=== PATIENT | female | born 1980 | race Asian ===

== ENCOUNTER → 2017-12-27 | Outpatient (CLI) | payer OTHER | END | disposition home or self-care (01) | LOC: C.PAPS 11:49 | PROVIDERS: ATTEND Physician Assistant | DX: Z01.419 Encounter for gynecological examination (general) (routine) without abnormal findings (principal) ==

== ENCOUNTER 2019-03-01 03:03 | Inpatient (IN) ==
[2019-03-01] MEDS: LACTATED RINGER'S 1,000 ML IV PRN ×2 (03:30→04:59)
[2019-03-01] MEDS ORDERED: OXYTOCIN 30 UNITS/500 ML BAG IV PRN ×2 (03:34→06:38)
--- NOTE | 2019-03-01 03:41 | History & Physical Report ---
Date of Service March 01, 2019 Assessment & Plan (1) Normal labor: IUP at 39 weeks in active labor planning epidural analgesia anticipate vaginal History of Present Illness Primary Care Provider: Zanerehan Quincy Patient is a 38 yo female who presents at 39 weeks with regular contractions. (-) SROM ,(-) bloody show, GBS(-). complicated by AMA and son is affected by Hemophilia A. This baby is a girl. Home Medications Home Medications Medication Instructions Recorded Confirmed Type [id number] fumarate-FA 1 tab PO DAILY 12/06/18 12/06/18 History [] Patient History Medical History No significant family history No significant medical problems No significant past medical history No significant past surgical history Social History Communication Tools: IPad Feels Safe at Home: Yes Smoking Status: Never smoker Hx Alcohol Use: No Hx Substance Use: No Review of Systems All systems reviewed & are unremarkable except as noted in HPI & below Physical Exam Constitutional: WD/WN, vitals as above Respiratory: normal respiratory effort, lungs clear to auscultation Cardiovascular: RRR, no murmur, no edema Gastrointestinal (Abdomen): normal bowel sounds, soft, nontender, no hepatosplenomegaly Musculoskeletal: no cyanosis or clubbing, extremities motor strength 5/5 no calf tenderness. Genitourinary: OB Exam Abdomen: + vertex and + regular contractions (3-4 minutes) Manual OB Exam: + cervical dilation 4 cm, + cervical effacement 80% and + station -1 OB Exam Monitor Tracing: + external FHT monitor used, + external uterine monitor used, + category I and + normal FHT variability Results & Data Vital Signs (Past 12 Hours) Vital Signs Pulse BP 03/01/19 03:15 60 155/88 H 03/01/19 03:12 66 143/79 H
[2019-03-01 04:05] LABS: Hematocrit (blood only) 32.8 % (37-47); Hemoglobin 11.7 g/dL (12.0-16.0); Mean Corpuscular Volume 89.6 fL (80-100); Mean Platelet Volume 10.1 fL (7.4-10.4); Platelet Count 146 K/uL (130-400); RDW Coefficient of Variation 12.5 % (11.5-14.5); RDW Standard Deviation 40.6 fL (36.4-46.3); Red Blood Count 3.66 M/uL (4.2-5.4)
[2019-03-01 04:10] LABS: Mean Corpuscular Hgb Conc 35.7 g/dL (32-36)
[2019-03-01] MEDS ORDERED: fentaNYL 2MCG/ML ROPIV 1.25MG/ML 100 ML BAG EPI ONE (04:23)
[2019-03-01] MEDS ORDERED: fentaNYL citrate 100 MCG/2 ML VIAL ONE (04:24)
[2019-03-01] MEDS ORDERED: BUPIVACAINE 0.25% 30 ML VIAL ONE (04:24)
[2019-03-01] MEDS ORDERED: ePHEDrine sulfate 50 MG/ML AMP ONE (04:24)
--- NOTE | 2019-03-01 04:48 | Anesthesiology Consultation ---
Date of Service March 01, 2019 Marshallese speaking Assessment & Plan Chart Review Chart Review: Patient NOT seen in Pre Admission Testing and Acceptable Risk for Labor Epidural Consults Requested none ASA ASA2 Proposed Anesthesia Anesthesia Type: Labor Epidural and CSE Risk / Benefits Reviewed With: PT / POA / Parent / Guardian, Accepts Plan and Informed Consent Obtained History Height/Weight Height: 5 ft 4 in Weight: 67.132 kg Allergies Allergy/AdvReac Type Severity Reaction Status Date / Time No Known Allergies Allergy Unverified 03/01/19 04:10 Medications Home Medications Medication Instructions Recorded Confirmed Last Taken [id number] fumarate-FA 1 tab PO DAILY 12/06/18 03/01/19 02/28/19 08:00 [] Active Medications Generic Name Dose Route Start Last Admin Trade Name Freq PRN Reason Stop Dose Admin Lactated Ringer's 1,000 mls @ 125 mls/hr 03/01/19 03:34 03/01/19 03:30 Lr IV 03/03/19 03:33 999 mls/hr .Q8H PRN Administration L&D Protocol Protocol NPO Date Last Intake of Fluids: 03/01/19 Time Last Intake of Fluids: 04:00 Date Last Intake of Solids: 02/28/19 Time Last Intake of Solids: 22:00 Past Medical History 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 No significant family history No significant medical problems No significant past medical history No significant past surgical history Exercise / Class Metabolic Activity II 4-5 Yardwork/Stairs/Walk up hill Past Surgical History Surgical History Hx of breast lump removal Past Anesthesia History No Hx of Anesthesia Complications and No Family Hx of Anesthesia Complications Social History Smoking Status: Never smoker Hx Alcohol Use: No Hx Substance Use: No Review of Systems no chest pain or sob Physical Exam Vital Signs Last Vital Signs Temp 36.4 C L 03/01/19 03:20 Pulse 63 03/01/19 04:45 Resp 18 03/01/19 03:20 BP 155/88 H 03/01/19 03:15 Pulse Ox 100 03/01/19 04:45 ENMT Mouth: no TMJ abnormality Thyromental Distance: > or= 3.5 Finger Breadths Mallampati Class: II Neck normal visual inspection Respiratory normal respiratory effort Auscultation: lungs clear to auscultation bilaterally Cardiovascular Rate/Rhythm: regular rate and regular rhythm Musculoskeletal Spine: normal cervical ROM Neurologic moves all extremities Psychiatric Orientation: alert and oriented x 3 Testing Laboratory Results 03/01/19 03:57
[2019-03-01] MEDS ORDERED: ePHEDrine sulfate 50 MG/ML AMP IV PRN (05:03)
[2019-03-01] MEDS ORDERED: NALOXONE HCL 0.4 MG/1 ML VIAL/CARP IV PRN (05:03)
[2019-03-01] MEDS ORDERED: NALOXONE HCL 1 MG in SODIUM CHLORIDE 0.9% 1000ML 1,000 ML IV PRN (05:03)
[2019-03-01] MEDS ORDERED: ONDANSETRON INJ 2 MG/ML 2 ML VIAL IV PRN (05:03)
[2019-03-01] MEDS ORDERED: fentaNYL 2MCG/ML ROPIV 1.25MG/ML 100 ML BAG EPI PRN (05:03)
[2019-03-01] MEDS ORDERED: DiphenhydrAMINE HCL 50 MG/ML VIAL IV PRN (05:03)
[2019-03-01] MEDS ORDERED: NALBUPHINE HCL INJ 10 MG/ML AMP IV PRN (05:03)
[2019-03-01] MEDS ORDERED: OXYCODONE/ACETAMINOPHEN 5mg/325mg TAB PO PRN (06:38)
[2019-03-01] MEDS ORDERED: ACETAMINOPHEN 325 MG TAB PO PRN (06:38)
[2019-03-01] MEDS ORDERED: IBUPROFEN 600 MG TAB PO PRN (06:38)
[2019-03-01] MEDS ORDERED: BENZOCAINE 20% AER SPR 82.5 GM CAN EXT PRN (06:38)
[2019-03-01] MEDS ORDERED: DIPHTHERIA/TETANUS/PERTUSSIS 0.5 ML SYR/VIAL IM ONE (06:38)
[2019-03-01] MEDS ORDERED: SUPERCREAM 0.870% 15 GM JAR EXT PRN (06:38)
[2019-03-01] MEDS ORDERED: HYDROCORTISONE ACETATE 25 MG SUPP PR PRN (06:38)
--- NOTE | 2019-03-01 07:47 | Anesthesia Procedure Note ---
Date of Service March 01, 2019 Anesthesia Post Epidural Note Vital Signs Vital Signs: Temp Pulse Resp BP Pulse Ox 36.8 C 71 18 125/71 63 L 03/01/19 07:05 03/01/19 07:39 03/01/19 07:20 03/01/19 07:39 03/01/19 06:15 Notes Mental Status: alert / awake / arousable and participated in evaluation Nausea / Vomiting: adequately controlled Pain: adequately controlled Airway Patency, RR, SpO2: stable & adequate BP & HR: stable & adequate Hydration State: stable & adequate Neuraxial Anesthesia: was administered and sensory block is resolving Anesthetic Complications: no major complications apparent and Pt Satisfied with anesthetic care Epidural: Removed without complications and With tip intact Notes: Epidural site clean, dry and intact. No signs of edema, erythema or bruising at insertion site. Pt instructed to request anesthesia if she has residual lower extremity numbness or if she develops lower extremity pain or weakness, back pain or headache.
[2019-03-01] MEDS ORDERED: FERROUS SULFATE 325 MG TAB PO ONE (08:29)
[2019-03-01] MEDS: PRENATAL VITAMIN 1 TAB PO SCH (08:31)
[2019-03-01] MEDS: DOCUSATE SODIUM 100 MG CAP PO SCH ×2 (08:31→20:11)
--- NOTE | 2019-03-01 09:16 | Delivery Summary ---
DATE OF OPERATION: 03/01/2019 The patient is a 38-year-old 2, para 1-0-0-1 female, who presents in active labor. Membranes ruptured spontaneously at approximately quarter of 5 in the morning. She received effective epidural analgesia. She moved rapidly to full dilation and pushed effectively over intact perineum for delivery of a viable female infant. The was placed on the mother's abdomen after delivery and there was spontaneous vigorous crying and the was moving all 4 limbs. The cord was somewhat short and this was clamped and cut, so further stability of the baby, the placenta was expressed, although the cord avulsed as the placenta was coming through the cervix and then it was manually extracted through the cervix without difficulty and intact. The cord was also 3 vessels. The second-degree perineal laceration was repaired with 3-0 chromic in the usual fashion. Estimated blood loss was 250 mL. Mother and are doing well after delivery. I attest to the content of the Intraoperative Record and any orders documented therein. Any exception s are noted below.
--- NOTE | 2019-03-02 07:16 | Obstetrical Progress Note ---
Date of Service <Denver Crocker DO - Last Filed: 03/02/19 07:16> March 02, 2019 Assessment & Plan <Denver Crocker DO - Last Filed: 03/02/19 07:16> (1) (spontaneous vaginal delivery): -vital signs reviewed and WNL -Blood type: B+, GBS-, Rubella Immune -pt doing well clinically -encourage ambulation, monitor and control pain with motrin tylenol, cont regular diet, monitor lochia -cont encourage bottle feeding -anticipate d/c tomorrow Subjective <Denver Crocker DO - Last Filed: 03/02/19 07:16> 38 y/o PPD1 found in bed this morning in NAD. Reports no acute overnight events. Pt states that she has no pain other than appropriate soreness. Tolerating PO intake without N/V. Able to ambulate without issue. She is bottle feeding without issue. No issues with voiding, no BM yet but passing gas. No other acute concerns or complaints. Review of Systems All systems reviewed & are unremarkable except as noted in HPI & below Physical Exam <Denver Crocker DO - Last Filed: 03/02/19 07:16> Constitutional WD/WN, vitals as above Respiratory normal respiratory effort, lungs clear to auscultation Cardiovascular RRR, no murmur, no edema Gastrointestinal (Abdomen) mild abd tenderness Skin no rashes, warm and dry Psychiatric A+Ox3, euthymic affect Lymphatic no LE swelling, no calf tenderness Results & Data <Denver Crocker DO - Last Filed: 03/02/19 07:16> Vital Signs (Past 12 Hours) Vital Signs Temp Pulse Resp BP Pulse Ox 03/02/19 03:50 37 C 76 16 101/63 97 03/01/19 23:40 36.8 C 74 16 118/78 95 03/01/19 19:50 36.8 C 79 18 108/75 98 Medications Administered Current Inpatient Medications Acetaminophen (Tylenol) 650 mg PO Q6H PRN PRN Reason: Pain/LEONE/Fever Stop: 03/31/19 06:37 Benzocaine (Dermoplast Pain Relieving [place]) 1 appln EXT PRN PRN PRN Reason: Perineal Discomfort Stop: 03/31/19 06:37 Last Admin: 03/01/19 08:31 Dose: 82.5 appln Documented by: Bisacodyl (Dulcolax) 5 mg PO 1999 [facility] Stop: 03/02/19 20:01 Bisacodyl (Dulcolax) 10 mg CA DAILY PRN PRN Reason: No BM on 2nd post- day Stop: 04/02/19 00:00 Cocaine HCl (Supercream 0.870%) 1 gm EXT BID PRN PRN Reason: Hemorrhoidal Inflammation Stop: 03/15/19 06:37 Docusate Sodium (Colace) 100 mg PO DAILY@08,21 [facility] Stop: 03/31/19 07:59 Last Admin: 03/01/19 20:11 Dose: 100 mg Documented by: Hydrocortisone (Anusol Hc) 25 mg CA BID PRN PRN Reason: Hemorrhoidal Inflammation Stop: 03/31/19 06:37 Lactated Ringer's (Lr) 1,000 mls @ 125 mls/hr IV .Q8H PRN; Protocol PRN Reason: L&D Protocol Stop: 03/03/19 03:33 Last Admin: 03/01/19 04:59 Dose: 999 mls/hr Documented by: Oxytocin (Pitocin) 30 units in 500 mls @ 333.333 mls/hr IV .Q1H30M PRN; Protocol PRN Reason: Bleeding Control Stop: 03/31/19 03:33 Last Admin: 03/01/19 06:25 Dose: 20 units/hr, 333.3 mls/hr Documented by: Oxytocin (Pitocin) 30 units in 500 mls @ 333.333 mls/hr IV .Q1H30M PRN; Protocol PRN Reason: Bleeding Control Stop: 03/31/19 06:37 Ibuprofen (Motrin) 600 mg PO Q4H PRN PRN Reason: Pain/LEONE/Cramping/Fever Stop: 03/31/19 06:37 Last Admin: 03/01/19 08:31 Dose: 600 mg Documented by: Oxycodone/Acetaminophen (Percocet 5mg/325mg) 1 tab PO Q4H PRN PRN Reason: Pain not relieved by... Stop: 03/15/19 06:37 Prenat Multivit/[place]/Iron/Folic Ac ( Vitamin) 1 tab PO DAILY@08 [facility] Stop: 03/31/19 07:59 Last Admin: 03/01/19 08:31 Dose: 1 tab Documented by: <Segun Hughes MD - Last Filed: 03/02/19 08:14> Co-Signing Physician Notes Patient seen and evaluated and agree with the above findings and plan. Resident Activity Tracking <Denver Crocker DO - Last Filed: 03/02/19 07:16> Resident Involvement: Resident Care Provided Care Provided: OB Delivery
[2019-03-02 08:03] LABS: Hematocrit (blood only) 32.3 % (37-47); Hemoglobin 11.3 g/dL (12.0-16.0); Mean Corpuscular Volume 91.5 fL (80-100); Mean Platelet Volume 9.5 fL (7.4-10.4); Platelet Count 144 K/uL (130-400); RDW Coefficient of Variation 12.9 % (11.5-14.5); RDW Standard Deviation 42.7 fL (36.4-46.3); Red Blood Count 3.53 M/uL (4.2-5.4)
[2019-03-02] MEDS: DOCUSATE SODIUM 100 MG CAP PO SCH ×2 (09:14→20:31)
[2019-03-02] MEDS: PRENATAL VITAMIN 1 TAB PO SCH (09:14)
[2019-03-02] MEDS ORDERED: BISACODYL 5 MG TABEC PO SCH (20:00)
[2019-03-03] MEDS ORDERED: BISACODYL 10 MG SUPP PR PRN
[2019-03-03 06:32] LABS: Hematocrit (blood only) 30.3 % (37-47); Hemoglobin 10.7 g/dL (12.0-16.0)
--- NOTE | 2019-03-03 07:30 | Obstetrical Progress Note ---
Date of Service March 03, 2019 Assessment & Plan (1) (spontaneous vaginal delivery): - doing well - desires d/c - instructions given - f/u in 6 weeks Subjective Ambulation: ambulating normally Voiding: no voiding problems Diet Tolerance:: regular diet Feeding Type:: breast feeding Physical Exam Gastrointestinal (Abdomen) Fundus firm below U Musculoskeletal (-) deep calf tenderness Results & Data Vital Signs (Past 12 Hours) Vital Signs Temp Pulse Resp BP Pulse Ox 03/02/19 23:25 37.1 C 74 16 106/70 96 03/02/19 20:20 37.6 C H 77 16 110/80 97
[2019-03-03] MEDS: DOCUSATE SODIUM 100 MG CAP PO SCH (07:39)
[2019-03-03] MEDS: PRENATAL VITAMIN 1 TAB PO SCH (07:39)
== END 2019-03-03 11:39 | disposition home or self-care (01) | DRG 807 ==
LOC: OPB 03:03 → 4S1 03:05 → 4S2 09:20